=== PATIENT | female | born 1985 | race Caucasian/White ===

== ENCOUNTER 2017-03-14 15:22 | Outpatient (CLI) | payer OTHER ==
--- NOTE | 2017-03-15 09:34 | Ultrasound Report ---
PELVIC ULTRASOUND: 03/14/2017 HISTORY: Pelvic pain. LAST MENSTRUAL PERIOD: 03/09/2017 TECHNIQUE: Real-time scanning by the program evaluation consultant with saved static images reviewed. Transabdominal approach for global evaluation. Endovaginal scanning for detailed assessment of the uterus and ovari es. FINDINGS: Uterus: Anteverted 6.7 x 2.5 x 3.9 cm, 34 mL, uterus of normal echotexture. Endometrial echo: 3 mm. Right ovary: 2.2 x 1.3 x 1.3 cm, volume 1.9 mL, normal echotexture and blood flow. Left ovary: 2.1 x 1.6 x 1.1 cm, volume 1.9 mL, normal echotexture and blood flow. Free fluid: None. IMPRESSION: NORMAL PELVIC ULTRASOUND. JOB #: [id number] EXT JOB #:[id number]
== END 2017-03-14 15:23 | disposition home or self-care (01) ==
LOC: DI 15:22
PROVIDERS: ATTEND Registered Nurse
DX: R10.2 Pelvic and perineal pain (principal)
CPT/HCPCS: 76830; 76856

== ENCOUNTER 2019-08-23 07:11 | Outpatient (CLI) | payer OTHER ==
--- NOTE | 2019-08-24 07:07 | Ultrasound Report ---
Reason: DYSMENORRHEA Procedure Date: 08/23/2019 Accession Number: [id number] / [id number] Procedure: US - Pelvic w/Transvaginal CPT Code: Final Report FULL RESULT: EXAM: PELVIC ULTRASOUND EXAM DATE: 08/23/2019 07:47 AM. CLINICAL HISTORY: DYSMENORRHEA. COMPARISON: PELVIC W/TRANSVAGINAL 03/14/2017 3:28 PM. TECHNIQUE: Realtime transabdominal pelvic scan performed to identify the uterus and adnexa and as an overview of other pelvic structures, followed by transvaginal scan to provide greater detail of the uterus and adnexa, with static image documentation. FINDINGS: Uterus: 7.0 x 2.9 x 4.9 cm, volume 52.8 cc. Anteverted position. Normal overall size and echotexture. Masses: None. Endometrium: 8.4 mm. Normal. Cervix: Tiny nabothian cysts. Otherwise unremarkable. Right Ovary: 2.7 x 2.1 x 1.7 cm, volume 5.0 cc. Corpus luteum cyst measuring 0.9 x 1.1 x 1.2 cm. No sonographic evidence of torsion. Left Ovary: 1.9 x 1.7 x 1.8 cm, volume 2.9 cc. Normal echotexture and blood flow. Free Fluid: Small free fluid in pelvic cul-de-sac. Other: None. IMPRESSION: 1. Unremarkable sonographic appearance of uterus. Endometrium measures 8.4 mm in thickness. 2. Unremarkable ovaries. No torsion. 3. Small free fluid in the pelvis, nonspecific. RADIA
== END 2019-08-23 07:12 | disposition home or self-care (01) ==
LOC: DI 07:11
PROVIDERS: ATTEND Nurse Practitioner Obstetrics & Gynecology
DX: N94.6 Dysmenorrhea, unspecified (principal); N92.4 Excessive bleeding in the premenopausal period
CPT/HCPCS: 76830; 76856

== ENCOUNTER 2020-05-16 14:20 | Outpatient (CLI) | payer OTHER | END 2020-05-16 14:21 | disposition home or self-care (01) | LOC: COV 14:20 | PROVIDERS: ATTEND Family Medicine | DX: R05 Cough (principal); R68.83 Chills (without fever); J02.9 Acute pharyngitis, unspecified; R09.81 Nasal congestion; Z20.828 Contact with and (suspected) exposure to other viral communicable diseases ==

== ENCOUNTER 2020-12-01 08:00 | Outpatient (CLI) | payer OTHER ==
[2020-12-02 20:45] LABS: BACTERIAL VAGINOSIS DNA NEGATIVE (NEGATIVE); CANDIDA GLABRATA DNA NEGATIVE (NEGATIVE); CANDIDA GROUP DNA NEGATIVE (NEGATIVE); CANDIDA KRUSEI DNA NEGATIVE (NEGATIVE); TRICHOMONAS VAGINALIS DNA NEGATIVE (NEGATIVE)
== END 2020-12-01 23:59 | disposition home or self-care (01) ==
LOC: LAB.WC 08:00
PROVIDERS: ATTEND Obstetrics & Gynecology
DX: R10.2 Pelvic and perineal pain (principal); G89.29 Other chronic pain
CPT/HCPCS: 87661; 87801

== ENCOUNTER 2020-12-29 12:46 | Outpatient (CLI) | payer OTHER ==
--- NOTE | 2020-12-29 15:50 | Ultrasound Report ---
PROCEDURE: Pelvic w/Transvaginal INDICATIONS: IUD SURVEILLANCE TECHNIQUE: Real-time scanning was performed of the pelvic organs, with image documentation. Additional endovagi nal scanning was necessary due to incomplete visualization of the adnexal and endometrial structures by transabdominal scanning. COMPARISON: None. FINDINGS: No pathologic free abdominal or pelvic fluid. The uterine body measures 3.4 x 4.2 x 8.0 cm. IUD is in expected normal position. The endometrial str ipe complex measures 3 mm in double layer thickness. No uterine mass identified. Both ovaries are normal in size. There is a simple cyst in the left ovary measuring 3.1 cm. Multiple bilateral uterine follicles identified. No solid ovarian or adnexal mass. IMPRESSION: Normal position of IUD. No acute or significant finding otherwise. Reviewed by: Blair Chávez MD on 12/29/2020 3:49 PM PDT Approved by: Blair Chávez MD on 12/29/2020 3:49 PM PDT Station ID: [id number]
== END 2020-12-29 12:47 | disposition home or self-care (01) ==
LOC: DI 12:46
PROVIDERS: ATTEND Obstetrics & Gynecology
DX: Z30.431 Encounter for routine checking of intrauterine contraceptive device (principal)

== ENCOUNTER 2021-01-16 09:40 | Outpatient (CLI) | payer OTHER ==
[2021-01-16 09:52] LABS: BASOPHILS # (AUTO) 0.1 10^3/uL (0.0-0.1); BASOPHILS % (AUTO) 0.5 %; EOSINOPHILS # (AUTO) 0.1 10^3/uL (0.0-0.7); EOSINOPHILS % (AUTO) 0.9 %; HCT - HEMATOCRIT 42.4 % (37.0-47.0); HGB - HEMOGLOBIN 14.6 g/dL (12.0-16.0); LYMPHOCYTES # (AUTO) 2.7 10^3/uL (1.5-3.5); LYMPHOCYTES % (AUTO) 27.4 %; MEAN CORPUSCULAR HEMOGLOBIN 32.1 pg (27.0-31.0); MEAN CORPUSCULAR HGB CONC 34.4 g/dL (32.0-36.0); MEAN CORPUSCULAR VOLUME 93.2 fL (81.0-99.0); MEAN PLATELET VOLUME 9.4 fL (7.9-10.8); MONOCYTES # (AUTO) 0.6 10^3/uL (0.0-1.0); MONOCYTES % (AUTO) 6.3 %; NEUTROPHILS # (AUTO) 6.3 10^3/uL (1.5-6.6); NEUTROPHILS % (AUTO) 64.6 %; PLT - PLATELET COUNT 266 10^3/uL (130-450); RED BLOOD COUNT 4.55 10^6/uL (4.20-5.40); RED CELL DISTRIBUTION WIDTH 11.9 % (12.0-15.0); WHITE BLOOD COUNT 9.8 x10^3/uL (4.8-10.8)
== END 2021-01-16 09:41 | disposition home or self-care (01) ==
LOC: LAB 09:40
PROVIDERS: ATTEND Obstetrics & Gynecology
DX: Z01.812 Encounter for preprocedural laboratory examination (principal); T83.39XA Other mechanical complication of intrauterine contraceptive device, initial encounter; R10.2 Pelvic and perineal pain; R87.619 Unspecified abnormal cytological findings in specimens from cervix uteri; G89.29 Other chronic pain
CPT/HCPCS: 36415; 85025

== ENCOUNTER 2021-01-17 06:04 | Day surgery (SDC) | payer OTHER ==
[~2021-01-17 06:04] MED LIST: ACETAMINOPHEN 1,000 MG/100 ML 0 ML IV ONE
[2021-01-17] MEDS ORDERED: CELECOXIB 100 MG CAPSULE PO ONE (06:05)
[2021-01-17] MEDS ORDERED: GABAPENTIN 400 MG CAPSULE ONE (06:05)
[2021-01-17 06:25] LABS: HCG UR QUAL NEGATIVE
[2021-01-17] MEDS ORDERED: LACTATED RINGERS 1,000 ML IV ONE ×2 (06:49→09:42)
[2021-01-17] MEDS ORDERED: PROPOFOL 200 MG/20 ML VIAL IVP ONE (07:09)
[2021-01-17] MEDS ORDERED: fentaNYL 100 MCG/2 ML VIAL ONE (07:09)
[2021-01-17] MEDS ORDERED: LIDOCAINE-MPF 2% 5 ML VIAL ONE (07:09)
[2021-01-17] MEDS ORDERED: MIDAZOLAM 2 MG/2 ML VIAL ONE (07:09)
[2021-01-17] MEDS ORDERED: ONDANSETRON 4 MG/2 ML VIAL ONE (07:10)
[2021-01-17] MEDS ORDERED: DEXAMETHASONE 4 MG/ML VIAL ONE (07:10)
[2021-01-17] MEDS ORDERED: ROCURONIUM 50 MG/5 ML VIAL ONE (07:10)
[2021-01-17] MEDS ORDERED: ACETAMINOPHEN 500 MG TABLET PO ONE (07:11)
--- NOTE | 2021-01-17 07:11 | ANESTHESIA ---
Pre-Anesthesia VS, & Labs - Diagnosis Chronic pelvic pain, retained IUD, abnormal pap - Procedure diagnostic laparoscopy, iud removal, colposcopy with cytology Vital Signs: Temp Pulse Resp BP Pulse Ox 36.3 C L 67 16 114/87 H 96 01/17/21 06:24 01/17/21 06:24 01/17/21 06:24 01/17/21 06:24 01/17/21 06:24 Height: 5 ft 7 in Weight (kg): 72 kg Body Mass Index: 24.8 BMI Classification: Healthy weight - NPO >8 hours - Is Patient ?: No Home Medications and Allergies Home Medications: Ambulatory Orders Escitalopram Oxalate [Lexapro] 20 mg PO DAILY 01/12/21 Valacyclovir HCl [Valtrex] 500 mg PO DAILY 01/12/21 traZODone [Desyrel] 50 mg PO HS 01/12/21 Escitalopram Oxalate [Lexapro] 20 mg PO DAILY 01/12/21 Valacyclovir HCl [Valtrex] 500 mg PO DAILY 01/12/21 traZODone [Desyrel] 50 mg PO HS 01/12/21 Allergies/Adverse Reactions: Allergies Allergy/AdvReac Type Severity Reaction Status Date / Time No Known Drug Allergies Allergy Verified 01/12/21 15:01 Anes History & Medical History - Anesthetic History Anesthesia Complications: reports: No previous complications - Medical History Cardiovascular: reports: None Pulmonary: reports: None Gastrointestinal: reports: None Urinary: reports: None Neuro: reports: None Musculoskeletal: reports: None Endocrine/Autoimmune: reports: None Blood Disorders: reports: None Skin: reports: Eczema Smoking Status: Never smoker Psychosocial: reports: Anxiety History of Cancer?: No - Surgical History Gynecologic: reports: Breast reduction Orthopedic: reports: Arthroscopic surgery, Other Exam General: Alert, Oriented x3, Cooperative, No acute distress Dental: WNL Mouth Openin Fingerbreadth Mallampati classification: I Thyromental Distance: 4-6 cm Respiratory: Lungs clear, Normal breath sounds, No respiratory distress, No accessory muscle use Cardiovascular: Regular rate, Normal S1, Normal S2, No murmurs Mental/Cognitive Status: Alert/Oriented X3, Normal for patient Plan Anesthesia Type: General Consent for Procedure(s) Verified and Reviewed: Yes Code Status: Attempt Resuscitation ASA classification: 2-Mild systemic disease Is this case an emergency?: No
[2021-01-17] MEDS ORDERED: LIDOCAINE 2%-EPI 1:100000 20 ML MDV ONE (07:14)
[2021-01-17] MEDS ORDERED: BUPIVACAINE 0.5% PF 30 ML VIAL ONE (07:14)
[2021-01-17] MEDS ORDERED: POTASSIUM IODIDE/IODINE 14 ML SOLUTION ONE (08:06)
[2021-01-17] MEDS ORDERED: BUPIVACAINE 0.5% PF 30 ML VIAL INFIL ONE ×2 (08:39)
[2021-01-17] MEDS ORDERED: LIDOCAINE MPF 2%-EPI 1:200000 20 ML VIAL SUBQ ONE ×2 (08:40)
[2021-01-17] MEDS ORDERED: KETOROLAC 30 MG/ML VIAL ONE (09:02)
[2021-01-17] MEDS ORDERED: NEOSTIGMINE 1 MG/1 ML 10 ML MDV ONE (09:05)
[2021-01-17] MEDS ORDERED: GLYCOPYRROLATE 1 MG/5 ML VIAL ONE (09:05)
[2021-01-17] MEDS ORDERED: NALOXONE 0.4 MG/ML VIAL IVP PRN (09:29)
[2021-01-17] MEDS ORDERED: fentaNYL 100 MCG/2 ML VIAL IVP PRN (09:29)
[2021-01-17] MEDS ORDERED: MORPHINE 2 MG/ML CARPUJECT IVP PRN (09:29)
[2021-01-17] MEDS ORDERED: ONDANSETRON 4 MG/2 ML VIAL IVP PRN (09:29)
[2021-01-17] MEDS ORDERED: HYDROmorphone 0.5 MG/0.5 ML SYRINGE IVP PRN (09:29)
[2021-01-17] MEDS ORDERED: ATROPINE ABBOJECT 1 MG/10 ML SYRINGE IVP PRN (09:29)
[2021-01-17] MEDS ORDERED: KETOROLAC 15 MG/ML VIAL IVP ONE (09:53)
[2021-01-17] MEDS ORDERED: LACTATED RINGERS 1,000 ML IV SCH (10:00)
--- NOTE | 2021-01-17 10:07 | ANESTHESIA POST OP EVALUATION ---
Anesthesia Post Eval - Post Anesthesia Eval Vitals: Last Vital Signs Temp 36.6 C 01/17/21 10:00 Pulse 65 01/17/21 10:00 Resp 12 01/17/21 10:00 BP 120/84 H 01/17/21 10:00 Pulse Ox 100 01/17/21 10:00 CV Function Including HR & BP: Stable Pain Control: Satisfactory Nausea & Vomiting: Negative Mental Status: Baseline Respiratory Status: Airway Patent Hydration Status: Satisfactory Anesthesia Complications: None
--- NOTE | 2021-01-17 10:09 | OPERATIVE REPORT ---
Operative Report - General Procedure Date: 01/17/21 Planned Procedure: Colposcopy IUD removal under anesthesia with possible hysteroscopic removal of IUD Diagnostic laparoscopy with possible ablation of endometriosis Pre-Op Diagnosis: Pelvic pain, retained IUD, cervical dysplasia. Procedure Performed: Colposcopy Attempt at blind removal of IUD Hysteroscopic retrieval of IUD Diagnostic laparoscopy with lysis of adhesions Post Op Diagnosis: Pelvic pain, cervical dysplasia, retained IUD, left sidewall adhesions - Procedure Note Primary Surgeon: Carolina Jackson MD Anesthesia Provider: Juve Castillo CRNA Anesthesia Technique: General ET tube Pathology: Cervical biopsy taken at 12:00, 6:00, and endocervical curettage IV Fluids (mL): 1,500 Estimated Blood Loss (mL): 15 Urine Output (mL): 50 Indications: 35 yo G0 withchronic pelvic pain failed IUD. Desires IUD removal and strings are retained. Desires diagnostic laparoscopy and possible ablation of endometriosis. ASCUS/HPV positive pap smear Findings: Colposcopy performed as noted in procedure note. Areas of thin AWE noted and biopsies were taken accordingly. IUD strings were not visualized. Hysteroscopy revealed that the IUD was in the uterus. IUD was removed and was intact. Otherwise normal appearing uterine cavity with bilateral tubal ostia. Exploration of the pelvis and abdomen showed a mildly thickened liver edge, normal appendix. Uterus was normal appearing with pinpoint subserosal fibroid on the posterior aspect of the uterus. Normal appearing right tube and ovary. Initially, could not visualize left tube and ovary as had been pinned under colon fixed in place with leftpelvic sidewall adhesions. Adhesions were released and left tube and ovary were visualized as normal. Cul de sac and uterosacral ligaments without endometriosis. Complications: None - Other Other Information/Narrative: Risks benefits and alternatives to the procedure were reviewed. Consent was again confirmed. Patient was taken to the operating room where she underwent general anesthesia. She was positioned in dorsolithotomy position with legs resting in yellowfin stirrups. Preoperative antibiotics were not indicated. Preoperative checklist was performed. COLPOSCOPY: Exam under anesthesia was performed. Speculum was placed in the vagina and the cervix was visualized. A solution of 3% acetic acid was applied to the cervix and colposcopy was performed. Lugol's solution was applied and again cervix was visualized. A cervical biopsy was taken at 12:00 and 6:00. Endocervical curettage was performed. Hemostasis was obtained with silver nitrate. good hemostasis was noted. HYSTEROSCOPIC REMOVAL OF IUD: She was then prepped and draped in the usual sterile fashion. Single-tooth tenaculum was placed at the anterior cervical lip. Paracervical block was administered using a total of 20 cc of 1% lidocaine with epinephrine was injected at the 4:00 and 8:00 positions lateral to the portio of the cervix. The cervical os was serially dilated with Hegar dilators to accommodate the caliber of the diagnostic hysteroscope. An IUD hook was passed into the uterus to attempt blind removal of the IUD. Several passes were attempted without success. The hysteroscope was inserted and IUD was noted in the endometrial cavity. A hysteroscopic grasper was used to grasp the shaft of the IUD and remove it from the cavity. The IUD was successfully removed. It was examined and found to be intact. The hysteroscope was again inserted and the uterine cavity was unremarkable in appearance. Hysteroscope was removed. Fluid deficit: 250 cc LAPAROSCOPIC LYSIS OF ADHESIONS: Attention was then turned to the laparoscopic portion of the procedure. HUMI manipulator was inserted into the uterine cavity. Tenaculum and speculum were removed. The base of the umbilicus was anesthetized with intradermal injection of 0.25% Marcaine. A 5 mm skin incision was made with a scalpel. A 5 mm blunt trocar was inserted under direct visualization using Visiport. Once the port was confirmed to be placed intraperitoneally, the abdomen was insufflated to 15 mmHg with CO2 gas Exploration of the abdomen and pelvis was confirmed that no injury was sustained with placement of the trocar. An additional 5 mm port was placed in the left lower quadrants, taking care to avoid the epigastric arteries, while under direct visualization via laparoscopic guidance. The pelvis and abdomen was explored with the laparoscope, with findings as noted. The left fallopian tube and ovary were immobilized beneath the colon. The tube was grasped and elevated at the fimbriated end with very limited mobility. Ovary could not be mobilized. The colon was adherent to the left pelvic sidewall. The adhesions were released with a combination of sharp and blunt dissection. With mobilization of the colon, the left fallopian tube and ovary were freely mobile and were easily visualized and free of endometriosis or other lesions. Good hemostasis was noted. The abdomen was partially desufflated. Adhesion beds were observed under decreased pressure and good hemostasis was again confirmed. Abdomen was then completely desufflated. All instruments were removed from the abdomen. Skin was closed with interrupted subcuticular stitches using 4-0 Monocryl. Dermabond was applied over the suture sites. The Humi manipulator was removed from the uterus. Again, good hemostasis was noted. The final sponge needle and instrument counts were correct at completion of the procedure patient was awakened taken to the postanesthesia care unit in stable condition. Procedure was well-tolerated without complication.
[2021-01-17] MEDS ORDERED: HYDROmorphone 1 MG/ML CARPUJECT ONE (10:11)
[2021-01-17 11:37] VITALS: BP 109/70
== END 2021-01-17 06:05 | disposition home or self-care (01) ==
LOC: SDS 06:04
PROVIDERS: ATTEND Obstetrics & Gynecology
PROC: 0UC98ZZ Extirpation of Matter from Uterus, Via Natural or Artificial Opening Endoscopic (ICD-10-PCS; principal; 2021-01-17 07:30)
PROC: 0UBC8ZX Excision of Cervix, Via Natural or Artificial Opening Endoscopic, Diagnostic (ICD-10-PCS; 2021-01-17 07:30)
DX: N87.0 Mild cervical dysplasia (principal); N73.6 Female pelvic peritoneal adhesions (postinfective); Z30.432 Encounter for removal of intrauterine contraceptive device; D25.2 Subserosal leiomyoma of uterus; B97.7 Papillomavirus as the cause of diseases classified elsewhere; F41.9 Anxiety disorder, unspecified
CPT/HCPCS: 57454; 58562; 58660; 81025; A9270; J1170; J7120

== ENCOUNTER 2021-05-10 08:00 | Outpatient (CLI) | payer OTHER | END 2021-05-10 23:59 | disposition home or self-care (01) | LOC: LAB.S 08:00 | PROVIDERS: ATTEND Physician Assistant | DX: J01.00 Acute maxillary sinusitis, unspecified (principal); Z20.822 Contact with and (suspected) exposure to COVID-19 ==

== ENCOUNTER 2021-05-25 17:49 | Outpatient (CLI) | payer OTHER | END 2021-05-25 17:50 | disposition home or self-care (01) | LOC: LAB 17:49 | PROVIDERS: ATTEND Nurse Practitioner Obstetrics & Gynecology | DX: Z33.1 Pregnant state, incidental (principal) | CPT/HCPCS: 36415; 84702; 86900; 86901 ==

== ENCOUNTER 2021-06-11 18:00 | Outpatient (CLI) | payer OTHER | END 2021-06-11 18:01 | disposition home or self-care (01) | LOC: LAB 18:00 | PROVIDERS: ATTEND Nurse Practitioner Obstetrics & Gynecology | DX: Z33.1 Pregnant state, incidental (principal) | CPT/HCPCS: 36415; 84702 ==

== ENCOUNTER 2021-09-07 14:46 | Outpatient (CLI) | payer OTHER ==
--- NOTE | 2021-09-07 15:22 | CT Report ---
PROCEDURE: Sinuses INDICATIONS: EUSTACHIAN TUBE DYSFUNCTION, SINUSITIS TECHNIQUE: Noncontrast 3.0 mm axial images acquired from the frontal sinuses to the mid-sella, with coronal and sagittal reformats. For radiation dose reduction, the following was used: automated exposure control , adjustment of mA and/or kV according to patient size. COMPARISON: None. FINDINGS: Image quality: Excellent. Maxillary Sinuses: Postoperative changes are seen, with removal of the medial yo of the maxillary sinuses. Sinuses are clear. Ethmoid Air Cells: No bony remodeling or destruction. Sinuses are clear. Sphenoid Sinuses: No bony remodeling or destruction. Sinuses are clear. Frontal Sinuses: No bony remodeling or destruction. Sinuses are clear. Ostiomeatal Complexes: Removed. Miscellaneous: Visualized intra-orbital contents are normal. The right middle turbinate has been re moved. No abby bullosa. There is mild rightward nasal septal deviation. IMPRESSION: No significant active paranasal sinus disease is seen. Postoperative change, with bilateral antrectomy and removal of the right middle turbinate. Reviewed by: Kiran James MD on 09/07/2021 2:21 PM EDIN Approved by: Kiran James MD on 09/07/2021 2:21 PM EDIN Station ID: [id number]
== END 2021-09-07 14:47 | disposition home or self-care (01) ==
LOC: DI 14:46
PROVIDERS: ATTEND Registered Nurse
DX: H69.80 Other specified disorders of Eustachian tube, unspecified ear (principal); J01.90 Acute sinusitis, unspecified

== ENCOUNTER 2021-09-23 07:47 | Outpatient (CLI) | payer OTHER ==
--- NOTE | 2021-09-23 09:51 | CT Report ---
PROCEDURE: CT temporal bones without contrast INDICATIONS: EUSTACHIAN TUBE DYSFUNCTION COMPARISON: None TECHNIQUE: Noncontrast 0.6 mm thick direct axial and coronal sections acquired through each temporal bone genaroa avelina. For radiation dose reduction, the following was used: automated exposure control, adjustment of mA and/or kV according to patient size. FINDINGS: Image quality: Excellent. RIGHT: External auditory canal: Canal has a normal appearance. Middle ear: The middle ear structures, including the ossicles and tympanic membrane, appear normal. No abnormal fluid or soft tissue density. Inner ear: Inner ear is normally formed and appears unremarkable. Facial nerve appears normal throu ghout is course. Mastoids: Mastoid air cells are clear. LEFT: External auditory canal: Canal has a normal appearance. Middle ear: The middle ear structures, including the ossicles and tympanic membrane, appear normal. No abnormal fluid or soft tissue density. Inner ear: Inner ear is normally formed and appears unremarkable. Facial nerve appears normal throu ghout its course. Mastoids: Mastoid air cells are clear. MISCELLANEOUS: Visualized surrounding bones appear unremarkable. Visualized intracranial structures , including the cerebellopontine angle cisterns, appear normal. IMPRESSION: Normal bilateral CT of the temporal bones Reviewed by: Syd Smalls MD on 09/23/2021 8:50 AM EDIN Approved by: Sdy Samlls MD on 09/23/2021 8:50 AM EDIN Station ID: [id number]
== END 2021-09-23 07:48 | disposition home or self-care (01) ==
LOC: DI 07:47
PROVIDERS: ATTEND Registered Nurse
DX: H69.80 Other specified disorders of Eustachian tube, unspecified ear (principal)

== ENCOUNTER 2022-03-24 08:29 | Outpatient (CLI) | payer OTHER ==
[2022-03-24 09:13] LABS: HCT - HEMATOCRIT 41.6 % (37.0-47.0); HGB - HEMOGLOBIN 13.9 g/dL (12.0-16.0); MEAN CORPUSCULAR HEMOGLOBIN 31.7 pg (27.0-31.0); MEAN CORPUSCULAR HGB CONC 33.4 g/dL (32.0-36.0); MEAN CORPUSCULAR VOLUME 94.8 fL (81.0-99.0); MEAN PLATELET VOLUME 10.4 fL (7.9-10.8); RED BLOOD COUNT 4.39 10^6/uL (4.20-5.40); RED CELL DISTRIBUTION WIDTH 12.3 % (12.0-15.0); WHITE BLOOD COUNT 6.1 x10^3/uL (4.8-10.8)
[2022-03-24 09:43] LABS: THYROID STIMULATING HORMONE 0.55 uIU/mL (0.34-5.60)
[2022-03-24 09:45] LABS: FREE T4 (FREE THYROXINE) 0.64 ng/dL (0.58-1.64)
[2022-03-25 08:07] LABS: DHEA-SULFATE 97.7 ug/dL (84.8-378.0); PROGESTERONE 0.4 ng/mL (.)
== END 2022-03-24 08:30 | disposition home or self-care (01) ==
LOC: LAB 08:29
PROVIDERS: ATTEND Nurse Practitioner
DX: E34.9 Endocrine disorder, unspecified (principal); Z87.09 Personal history of other diseases of the respiratory system; R09.81 Nasal congestion
CPT/HCPCS: 36415; 81599; 82627; 82670; 82679; 84144; 84403; 84439; 84443; 85027; 85651; 86038; 86140

== ENCOUNTER 2022-04-10 08:00 | Outpatient (CLI) | payer OTHER ==
--- NOTE | 2022-04-11 19:38 | XRAY Report ---
PROCEDURE: Lumbar Spine 2 View INDICATIONS: LUMBAR RADICULOPATHY, LEFT TECHNIQUE: 3 views of the lumbar spine were acquired. COMPARISON: None. FINDINGS: Bones: There are five nonrib-bearing lumbar-type vertebral bodies of normal height and alignment. No significant degenerative change. Soft tissues: Overlying bowel gas pattern is normal. No suspicious soft tissue calcifications. IMPRESSION: No significant degenerative change or acute finding. Reviewed by: Blair Chávez MD on 04/11/2022 7:37 PM PDT Approved by: Blair Chávez MD on 04/11/2022 7:37 PM PDT Station ID: [id number]
== END 2022-04-10 23:59 | disposition home or self-care (01) ==
LOC: DI.S 08:00
PROVIDERS: ATTEND Physician Assistant
DX: M54.16 Radiculopathy, lumbar region (principal)